=== PATIENT | male | born 1990 | race African-American/Black ===

== ENCOUNTER 2021-09-11 08:46 | Emergency (ER) | payer MEDICARE, MEDICAID ==
[~2021-09-11] VITALS: Ht 177.8 cm; Wt 84.8 kg
[2021-09-11 10:46] VITALS: BP 168/96
[2021-09-11 14:52] LABS: Basophils # (auto) 0.1 10 ^3/uL (0-0.2); Basophils % (auto) 2.1 % (0.0-2.0); Eosinophils # (auto) 0.4 10 ^3/uL (0-0.8); Eosinophils % (auto) 6.5 % (0.0-7.0); Hematocrit 34.1 % (41.0-53.0); Hemoglobin 11.3 g/dL (13.5-17.5); Lymphocytes # (auto) 1.9 10 ^3/uL (0.4-5.4); Lymphocytes % (auto) 32.1 % (10.0-50.0); Mean Corpuscular Hgb Conc. 33.3 g/dL (32.0-36.0); Mean Corpuscular Volume 90.1 fL (80.0-100.0); Monocytes # (auto) 0.4 10 ^3/uL (0-1.3); Monocytes % (auto) 6.2 % (0.0-12.0); Neutrophils # (auto) 3.1 10 ^3/uL (1.6-8.6); Neutrophils % (auto) 53.1 % (37.0-80.0); Nucleated Red Blood Cells % 0.1 %; Red Blood Cells 3.79 10^6/uL (4.5-5.90); Red Cell Distribution Width 15.8 % (11.8-14.3); White Blood Cell 5.9 10^3/uL (4.4-10.8)
[2021-09-11 15:06] LABS: Albumin 3.8 g/dL (3.4-5.0); Calcium 8.4 mg/dL (8.5-10.1); INR 1.01 (0.9-1.15); Partial Thromboplastin Time 26.4 sec (23.6-33.0); Potassium 5.3 mmol/L (3.5-5.1)
[2021-09-11 15:15] LABS: BUN/Creatinine Ratio 4.2; Bilirubin, Total 0.4 mg/dL (0.2-1.0); Total Protein 7.1 g/dL (6.4-8.2)
[2021-09-11] MEDS ORDERED: MORPHINE SULFATE INJECTION 2 MG/ML SYRG IV PRN (16:45)
[2021-09-11] MEDS ORDERED: NITROGLYCERIN 0.4 MG SL TAB SL PRN (16:45)
[2021-09-12] MEDS ORDERED: SODIUM CHL 0.9% 1000 ML BAG XX ONE (07:00)
[2021-09-12] MEDS ORDERED: ENOXAPARIN SOD 30 MG/0.3 ML SYRINGE SC SCH (10:00)
== END 2021-09-11 18:55 | disposition home or self-care (01) ==
LOC: ER 08:46
DX: E87.5 Hyperkalemia (principal); I12.0 Hypertensive chronic kidney disease with stage 5 chronic kidney disease or end stage renal disease; N18.6 End stage renal disease; Z20.822 Contact with and (suspected) exposure to COVID-19
CPT/HCPCS: 36415; 80053; 85025; 85610; 85730; 87426; 99283; C9803; U0003

== ENCOUNTER 2021-09-14 23:46 | Inpatient (IN) | payer MEDICARE, MEDICAID ==
[~2021-09-14] VITALS: Ht 177.8 cm; Wt 90.7 kg
[2021-09-15 02:17] LABS: Basophils # (auto) 0.1 10 ^3/uL (0-0.2); Basophils % (auto) 1.5 % (0.0-2.0); Eosinophils # (auto) 0.5 10 ^3/uL (0-0.8); Eosinophils % (auto) 6.8 % (0.0-7.0); Hematocrit 32.9 % (41.0-53.0); Hemoglobin 10.7 g/dL (13.5-17.5); Lymphocytes # (auto) 2.6 10 ^3/uL (0.4-5.4); Lymphocytes % (auto) 36.3 % (10.0-50.0); Mean Corpuscular Hemoglobin 29.3 pg (28.0-32.0); Mean Corpuscular Hgb Conc. 32.6 g/dL (32.0-36.0); Mean Corpuscular Volume 89.8 fL (80.0-100.0); Monocytes # (auto) 0.6 10 ^3/uL (0-1.3); Monocytes % (auto) 8.2 % (0.0-12.0); Neutrophils # (auto) 3.3 10 ^3/uL (1.6-8.6); Neutrophils % (auto) 47.2 % (37.0-80.0); Red Blood Cells 3.66 10^6/uL (4.5-5.90)
[2021-09-15 02:55] LABS: Albumin 3.4 g/dL (3.4-5.0); Calcium 8.9 mg/dL (8.5-10.1)
[2021-09-15 03:04] LABS: Bilirubin, Total 0.5 mg/dL (0.2-1.0)
[2021-09-15 03:30] LABS: Magnesium 4.5 mg/dL (1.6-2.6); Potassium 6.3 mmol/L (3.5-5.1)
[2021-09-15] MEDS ORDERED: SODIUM ZIRCONIUM CYCL 10 GM PAK PO ONE (03:45)
[2021-09-15] MEDS ORDERED: InsuLIN REG 1unit/0.01ml Soln (100units/ml) IV ONE ×2 (03:45→05:45)
[2021-09-15] MEDS ORDERED: DEXTROSE (50%) 50ML SYRG IV ONE (03:45)
[2021-09-15] MEDS ORDERED: CALCIUM GLUC 1,000mg/50ml-NS 50 ML IV ONE ×2 (03:45→05:45)
[2021-09-15] MEDS ORDERED: ALBUTEROL SULF 2.5 MG/0.5ML(0.5%) NEB SOLN NEB ONE (03:45)
[2021-09-15] MEDS ORDERED: SODIUM BICARBONATE 8.4% INJ 50ML SYRINGE IV ONE (03:45)
[2021-09-15] MEDS ORDERED: FUROSEMIDE 20 MG/2 ML VIAL IV ONE (03:45)
[2021-09-15 03:47] LABS: BUN/Creatinine Ratio 4.9
[2021-09-15] MEDS ORDERED: NITROGLYCERIN 0.4 MG SL TAB SL PRN (05:30)
[2021-09-15] MEDS ORDERED: MORPHINE SULFATE INJECTION 2 MG/ML SYRG IV PRN (05:30)
[2021-09-15] MEDS ORDERED: DEXTROSE (50%) 50ML SYRG IV PRN (05:45)
[2021-09-15] MEDS ORDERED: DEXTROSE (25%) 10 ML SYRG IV ONE (05:45)
[2021-09-15] MEDS ORDERED: BUMETANIDE 2.5mg/10ml (0.25 mg/ml) INJ IV ONE (05:45)
[2021-09-15] MEDS ORDERED: diphenhdrAMINE HCL 50 MG/1 ML VL IV ONE ×3 (05:45→17:15)
[2021-09-15] MEDS: ACCU-CHEK COMFORT CURVE STRIP VI SCH ×3 (10:02→17:23)
[2021-09-15] MEDS: InsuLIN REG 1unit/0.01ml Soln (100units/ml) SC SCH ×3 (10:02→17:00)
[2021-09-15] MEDS: ENOXAPARIN SOD 30 MG/0.3 ML SYRINGE SC SCH (11:00)
[2021-09-15] MEDS: SEVELAMER 800 MG TAB PO SCH ×2 (11:00→12:00)
[2021-09-15] MEDS ORDERED: SODIUM CHL 0.9% 1000 ML BAG XX ONE (11:15)
[2021-09-15] MEDS ORDERED: ACETAMINOPHEN 325 MG TAB PO ONE (17:15)
[2021-09-15] MEDS ORDERED: diphenhdrAMINE HCL 50 MG/1 ML VL IM ONE (17:15)
[2021-09-15] MEDS ORDERED: EPOETIN ALFA-EPBX 4,000 UNIT/ML VIAL SC ONE (21:00)
[2021-09-15] MEDS ORDERED: InsuLIN REG 1unit/0.01ml Soln (100units/ml) SC SCH (22:00)
[2021-09-15 23:00] VITALS: BP 166/97
[2021-09-16] MEDS: SEVELAMER 800 MG TAB PO SCH ×4 (00:15→17:21)
[2021-09-16] MEDS: ACCU-CHEK COMFORT CURVE STRIP VI SCH ×2 (00:16→06:21)
[2021-09-16] MEDS: cloNIDine HCL 0.1 MG TAB PO PRN ×3 (00:17→17:58)
[2021-09-16] MEDS ORDERED: ENTE1TAB12 PO (00:23)
[2021-09-16] MEDS ORDERED: NIFE90TA49 PO (00:23)
[2021-09-16] MEDS ORDERED: METO-158 PO (00:23)
[2021-09-16] MEDS ORDERED: CINA30TA2 PO (00:23)
[2021-09-16] MEDS ORDERED: CLON0.3D4 PO (00:23)
[2021-09-16] MEDS ORDERED: MIN25T PO (00:23)
[2021-09-16 05:00] VITALS: BP 173/91
[2021-09-16 06:02] LABS: Basophils # (auto) 0.1 10 ^3/uL (0-0.2); Basophils % (auto) 1.1 % (0.0-2.0); Eosinophils # (auto) 0.3 10 ^3/uL (0-0.8); Hematocrit 29.4 % (41.0-53.0); Hemoglobin 9.7 g/dL (13.5-17.5); Lymphocytes # (auto) 1.3 10 ^3/uL (0.4-5.4); Lymphocytes % (auto) 24.2 % (10.0-50.0); Mean Corpuscular Hemoglobin 29.3 pg (28.0-32.0); Mean Corpuscular Hgb Conc. 33.1 g/dL (32.0-36.0); Mean Corpuscular Volume 88.6 fL (80.0-100.0); Monocytes # (auto) 0.7 10 ^3/uL (0-1.3); Neutrophils # (auto) 3.1 10 ^3/uL (1.6-8.6); Neutrophils % (auto) 56.7 % (37.0-80.0); Red Blood Cells 3.32 10^6/uL (4.5-5.90); Red Cell Distribution Width 16.4 % (11.8-14.3); White Blood Cell 5.5 10^3/uL (4.4-10.8)
[2021-09-16] MEDS: InsuLIN REG 1unit/0.01ml Soln (100units/ml) SC SCH (06:21)
[2021-09-16 06:24] LABS: Potassium 4.7 mmol/L (3.5-5.1)
[2021-09-16 06:39] LABS: Folate (Folic Acid) 10.62 ng/mL (5.38-24)
[2021-09-16 06:43] LABS: Albumin 3.2 g/dL (3.4-5.0); BUN/Creatinine Ratio 4.1; Bilirubin, Total 0.5 mg/dL (0.2-1.0); Calcium 8.1 mg/dL (8.5-10.1); Total Protein 6.5 g/dL (6.4-8.2)
[2021-09-16] MEDS ORDERED: cloNIDine HCL 0.1 MG TAB PO ONE (07:00)
[2021-09-16] MEDS ORDERED: ACETAMINOPHEN 325 MG TAB PO ONE (07:00)
[2021-09-16 07:08] LABS: % Iron Saturation 29.4 % (20-55)
[2021-09-16 08:00] VITALS: BP 168/107
[2021-09-16 09:00] VITALS: BP 168/107
[2021-09-16] MEDS: NIFEdipine ER 30 MG TAB PO SCH (10:00)
[2021-09-16] MEDS: hydrALAZINE HCL 25 MG TAB PO SCH ×2 (10:00→22:19)
[2021-09-16] MEDS: ENOXAPARIN SOD 30 MG/0.3 ML SYRINGE SC SCH (10:00)
[2021-09-16] MEDS: LABETALOL HCL 200 MG TAB PO SCH ×2 (10:00→22:19)
[2021-09-16] MEDS: ACETAMINOPHEN 325 MG TAB PO PRN ×3 (12:37→22:20)
[2021-09-16] MEDS ORDERED: ERGOCALCIFEROL 50,000 UNIT(1.25MG) CAP PO SCH (14:15)
[2021-09-16 17:00] VITALS: BP 166/95
[2021-09-16 22:00] VITALS: BP 168/87
[2021-09-16] MEDS ORDERED: TEMAZEPAM 15 MG CAP PO ONE (22:45)
[2021-09-17] MEDS: ACETAMINOPHEN 325 MG TAB PO PRN ×3 (04:34→16:21)
[2021-09-17 05:30] VITALS: BP 166/88
[2021-09-17 06:34] LABS: Potassium 4.7 mmol/L (3.5-5.1)
[2021-09-17 06:46] LABS: Calcium 9.3 mg/dL (8.5-10.1)
[2021-09-17] MEDS ORDERED: SODIUM CHL 0.9% 1000 ML BAG XX ONE (07:00)
[2021-09-17 08:01] LABS: Albumin 3.2 g/dL (3.4-5.0); Bilirubin, Total 0.5 mg/dL (0.2-1.0); Total Protein 6.5 g/dL (6.4-8.2)
[2021-09-17 08:22] LABS: Bilirubin, Direct 0.1 mg/dL (0-0.2)
[2021-09-17 08:45] VITALS: BP 161/87
[2021-09-17] MEDS: SEVELAMER 800 MG TAB PO SCH ×3 (08:45→17:43)
[2021-09-17] MEDS: LABETALOL HCL 200 MG TAB PO SCH (10:00)
[2021-09-17] MEDS: ENOXAPARIN SOD 30 MG/0.3 ML SYRINGE SC SCH (10:00)
[2021-09-17] MEDS: hydrALAZINE HCL 25 MG TAB PO SCH ×2 (10:00→20:59)
[2021-09-17] MEDS: NIFEdipine ER 30 MG TAB PO SCH (10:00)
[2021-09-17 13:02] VITALS: BP 170/94
[2021-09-17 14:34] LABS: Hepatitis C Antibody Negative (Negative)
[2021-09-17 14:36] LABS: Hepatitis A Total Antibody Positive (Negative); Hepatitis B Surface Antibody Negative (Negative)
[2021-09-17] MEDS ORDERED: diphenhdrAMINE HCL 50 MG/1 ML VL IV ONE (14:45)
[2021-09-17] MEDS ORDERED: MINOXIDIL 10 MG TAB PO ONE (16:45)
[2021-09-17 17:42] VITALS: BP 187/86
[2021-09-17] MEDS: cloNIDine HCL 0.1 MG TAB PO PRN (17:43)
[2021-09-17] MEDS ORDERED: TEMAZEPAM 15 MG CAP PO ONE (18:15)
[2021-09-17] MEDS: cloNIDine HCL 0.1 MG TAB PO SCH (20:59)
[2021-09-17] MEDS ORDERED: EPOETIN ALFA-EPBX 10,000 UNIT/1ML VIAL SC ONE (21:00)
[2021-09-17] MEDS: METOPROLOL TARTRATE 50 MG TAB PO SCH (21:00)
[2021-09-17 22:00] VITALS: BP 172/98
[2021-09-18 05:00] VITALS: BP 151/76
[2021-09-18] MEDS: SEVELAMER 800 MG TAB PO SCH ×3 (09:20→18:08)
[2021-09-18] MEDS: hydrALAZINE HCL 25 MG TAB PO SCH ×2 (09:32→21:52)
[2021-09-18] MEDS: MINOXIDIL 10 MG TAB PO SCH (09:33)
[2021-09-18] MEDS: cloNIDine HCL 0.1 MG TAB PO SCH ×2 (09:33→21:53)
[2021-09-18] MEDS: NIFEdipine ER 30 MG TAB PO SCH (09:33)
[2021-09-18] MEDS: METOPROLOL TARTRATE 50 MG TAB PO SCH ×2 (09:33→21:52)
[2021-09-18] MEDS: ACETAMINOPHEN 325 MG TAB PO PRN (09:34)
[2021-09-18] MEDS: ENOXAPARIN SOD 30 MG/0.3 ML SYRINGE SC SCH (09:34)
[2021-09-18] MEDS ORDERED: SEVE800T10 PO (13:09)
[2021-09-18 14:39] VITALS: BP 150/70
[2021-09-18 17:11] VITALS: BP 140/90
[2021-09-18 22:00] VITALS: BP 150/88
[2021-09-19 05:00] VITALS: BP 148/91
[2021-09-19 09:00] VITALS: BP 129/75
[2021-09-19] MEDS: hydrALAZINE HCL 25 MG TAB PO SCH (09:29)
[2021-09-19] MEDS: METOPROLOL TARTRATE 50 MG TAB PO SCH (09:30)
[2021-09-19] MEDS: cloNIDine HCL 0.1 MG TAB PO SCH (09:30)
[2021-09-19] MEDS: MINOXIDIL 10 MG TAB PO SCH (09:30)
[2021-09-19] MEDS: NIFEdipine ER 30 MG TAB PO SCH (09:31)
[2021-09-19] MEDS: ENOXAPARIN SOD 30 MG/0.3 ML SYRINGE SC SCH (09:31)
[2021-09-19] MEDS: SEVELAMER 800 MG TAB PO SCH (09:32)
[2021-09-19] MEDS ORDERED: ERGO1CAP23 PO (12:37)
[2021-09-19 13:18] VITALS: BP 129/75
== END 2021-09-19 14:51 | disposition home or self-care (01) | DRG 280 ==
LOC: ER 23:49 → TELE 09-15 05:32 → TELE-WESTW 09-15 23:23
PROVIDERS: ADMIT Internal Medicine; ATTEND Internal Medicine
PROC: 5A1D70Z Performance of Urinary Filtration, Intermittent, Less than 6 Hours Per Day (ICD-10-PCS; principal; 2021-09-17)
DX: I16.0 Hypertensive urgency (principal); N18.6 End stage renal disease; I21.A1 Myocardial infarction type 2; B18.1 Chronic viral hepatitis B without delta-agent; D63.1 Anemia in chronic kidney disease; E87.5 Hyperkalemia; M89.8X9 Other specified disorders of bone, unspecified site; Z20.822 Contact with and (suspected) exposure to COVID-19; E55.9 Vitamin D deficiency, unspecified; I12.0 Hypertensive chronic kidney disease with stage 5 chronic kidney disease or end stage renal disease; Z91.19 Patient's noncompliance with other medical treatment and regimen; Z99.2 Dependence on renal dialysis; Z91.15 Patient's noncompliance with renal dialysis; Z90.5 Acquired absence of kidney
CPT/HCPCS: 36415; 71045; 80048; 80053; 80061; 80076; 82306; 82607; 82746; 82962; 83036; 83540; 83550; 83735; 84100; 84132; 84443; 84484; 85025; 86704; 86706; 86708; 86803; 87081; 87340; 87426; 90935; 93005; 93306; 94644; 96365; 96372; 96375; 96376; G0378